=== PATIENT | female | born 1950 ===

== ENCOUNTER 2025-04-09 07:21 | Day surgery (SDC) | payer OTHER ==
[2025-04-01 14:25] VITALS: BP 150/80
[~2025-04-09] VITALS: Ht 152.4 cm; Wt 59.0 kg
[~2025-04-09 07:21] MED LIST: AMLODIPINE BESY10 MG PO; ATORVASTATIN CA10 MG PO; COZAAR25 MG PO
[2025-04-09] MEDS ORDERED: POVIDONE-IODINE 118 ML BOTT TOP ONE (12:45)
[2025-04-09] MEDS ORDERED: KETOROLAC TROMETHAMINE 30 MG VIAL IV ONE (14:30)
[2025-04-09] MEDS ORDERED: MORPHINE SULFATE 4 MG/ML VIAL IV ONE (15:00)
[2025-04-09] MEDS ORDERED: KETOROLAC TROMETHAMINE 30 MG VIAL ONE (15:51)
[2025-04-09 20:38] VITALS: BP 129/56; O2SAT 100
== END 2025-04-09 17:20 | disposition home or self-care (01) ==
LOC: CIR.AMB 07:21
PROVIDERS: ATTEND Obstetrics & Gynecology
DX: N95.0 Postmenopausal bleeding (principal); N88.2 Stricture and stenosis of cervix uteri; N84.0 Polyp of corpus uteri; D25.0 Submucous leiomyoma of uterus